=== PATIENT | female | born 1985 | race Caucasian/White ===

== ENCOUNTER → 2021-08-01 | Outpatient (CLI) | payer BC, OTHER ==
[~2021-08-01] MED LIST: IBUP600T42 PO; MAPA500T2 PO; PRENATALVITAMIN PO
--- NOTE | 2021-08-01 12:27 | REP ---
INDICATION: LT BREAST LUMP FM H/O BREAST CA. COMPARISON: None TECHNIQUE: Real-time sonographic evaluation of left axillary tail/axilla palpable lump performed. FINDINGS: There is no evidence of a cystic or solid nodule in the region of the palpable lump in the left axillary tail/axilla. IMPRESSION: BIRADS/ACR category 1, negative ultrasound left axillary tail and left axilla. No cystic or solid nodule. RECOMMENDATION: Recommend clinical correlation and follow-up. <Electronically signed by Damir Gomez > 08/01/21 1415
== END ==
LOC: M WHC 11:06
PROVIDERS: ATTEND Nurse Practitioner Family
DX: N63.21 Unspecified lump in the left breast, upper outer quadrant (principal)